=== PATIENT | male | born 1950 | race Caucasian/White ===

== ENCOUNTER → 2020-01-15 | Outpatient (CLI) | payer MEDICARE ==
--- NOTE | 2020-01-15 09:00 | Diagnostic Imaging Report ---
TECHNIQUE: Magnetic resonance imaging of the RIGHT SHOULDER was performed WITHOUT injected contrast. COMPARISON: None available. HISTORY: Pain FINDINGS: MUSCLES AND TENDONS: Rotator Cuff: Tendons: Full thickness tear of the supraspinatus and infraspinatus tendon with retraction approximately 2 cm. Partial-thickness tearing of the subscapularis. Muscles: No focal muscle atrophy. Biceps Tendon: The long head of the biceps tendon is intact within the bicipital groove. GLENOHUMERAL JOINT: Glenoid Labrum: Tearing of the superior labrum Articular Cartilage: No focal defect. AC JOINT AND ACROMION: Moderate hypertrophic degenerative changes of the acromioclavicular joint. Subacromial spurring. BONE: No specific evidence of a focal or infiltrative bone marrow replacing abnormality. No acute fracture. SOFT TISSUES: Thickening of the axillary recess and infiltration of the rotator cuff interval. IMPRESSION: Supraspinatus and infraspinatus full thickness tear with retraction. No atrophy. Subscapularis partial-thickness tearing and long head biceps tendon complete tear with retraction. Signed by: Dr. Chandan Meehan M.D. on 01/15/2020 8:58 AM
== END ==
LOC: MRI 07:30
PROVIDERS: ATTEND Family Medicine
DX: M25.511 Pain in right shoulder (principal)